=== PATIENT | female | born 1945 | race Hispanic/Latino ===

== ENCOUNTER 2017-06-10 08:17 | Day surgery (SDC) | payer MEDICARE ==
[2016-11-17 07:19] VITALS: BMI 29.9
[2017-06-10] MEDS ORDERED: Bupivacaine HCl 0.25% PF (10 ml) Inj ONE (10:07)
[2017-06-10] MEDS ORDERED: MethylPREDNISolone Depo 40 mg/ml Inj ONE (10:07)
[2017-06-10] MEDS ORDERED: Iohexol 240 (50 ml) ONE (10:07)
[2017-06-10] MEDS ORDERED: Propofol 10 mg/ml Inj (20 ML) ONE (10:09)
[2017-06-10] MEDS ORDERED: Lidocaine Hydrochloride 5 ML INJ ONE (10:09)
[2017-06-10] MEDS ORDERED: Lactated Ringer's 1,000 ML IV ONE (10:10)
[2017-06-10 11:38] VITALS: RESP 13
[2017-06-10 11:40] VITALS: BP 146/67; PULSE 74; TEMP 97.8; O2SAT 96
--- NOTE | 2017-06-11 10:44 | RAD ---
PROCEDURE: Intraoperative Fluoroscopy. HISTORY: THORACIC RADICULOPATHY FINDINGS: Fluoroscopic assistance was provided for T 6-7 epidural injection.
== END 2017-06-10 11:20 | disposition home or self-care (01) ==
LOC: C.SDS 08:17
PROVIDERS: ATTEND Anesthesiology Pain Medicine
DX: M51.14 Intervertebral disc disorders with radiculopathy, thoracic region (principal)
CPT/HCPCS: 62321; 76000; 82948; J1030; J2704; J7120; Q9966